=== PATIENT | female | born 1955 | race Caucasian/White ===

== ENCOUNTER → 2019-07-19 14:18 | Outpatient (CLI) | payer MEDICARE, OTHER, SELFPAY ==
--- NOTE | ~2019-07-19 | XR_ITS ---
EXAMINATION: XR heel LT min 2V DATE: 07/19/2019 14:42 INDICATION: Left heel Sosa deformity. Retrocalcaneal bursitis. TECHNIQUE: 2 views of left calcaneus were obtained. COMPARISON: None. FINDINGS: Bone alignment is normal. No fracture. Joint spaces are normal. There are enthesophytes at the posterior and plantar aspects of calcaneal tuberosity. IMPRESSION: 1. Enthesophytes at the posterior and plantar aspects of calcaneal tuberosity. Reviewed, dictated and finalized at location A. N NURSE
== END ==
PROVIDERS: Visit Provider Podiatrist Foot & Ankle Surgery
DX: M77.32 Calcaneal spur, left foot (principal); M70.872 Other soft tissue disorders related to use, overuse and pressure, left ankle and foot
CPT/HCPCS: 73650

== ENCOUNTER 2019-11-01 15:17 | Emergency (ER) | payer MEDICARE, OTHER, SELFPAY ==
[2019-11-01 15:34] VITALS: BP 94/53; PULSE 73; RESP 18; TEMP 36.2; O2SAT 100
--- NOTE | 2019-11-01 15:51 | ED.NEUROSD ---
HPI - Neuro Symptoms/Deficit General Chief Complaint: Neuro Symptoms/Deficit Stated Complaint: herpes zoster Time Seen by Provider: 11/01/19 15:45 Source: patient and RN notes reviewed Mode of arrival: ambulatory Limitations: no limitations History of Present Illness HPI Narrative: Patient presents today with a 2-day history of left-sided eye and facial droop, left-sided blurred vision, drooling and drinking. Denies chest pain, shortness of breath, nausea or vomiting, headache or dizziness. History of diabetes and hypercholesterolemia as well as hypertension. She takes 81 mg aspirin every night. 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 States her symptoms are not continuing to worsen, and actually have improved somewhat since onset. She has not tried any stxo-vjc-pwcroyi medication at home prior to arrival. Related Data Home Medications Medication Instructions Recorded Confirmed alprazolam [Xanax] 1 mg PO HS 11/01/19 11/01/19 aripiprazole [Abilify] 2 mg PO HS 11/01/19 11/01/19 aspirin 81 mg PO HS 11/01/19 11/01/19 atorvastatin [Lipitor] 40 mg PO HS 11/01/19 11/01/19 celecoxib [Celebrex] 200 mg PO DAILY 11/01/19 11/01/19 dulaglutide [Trulicity] 1.5 mg SUBCUT WEEKLY 11/01/19 11/01/19 fluoxetine [Prozac] 40 mg PO DAILY 11/01/19 11/01/19 gabapentin [Neurontin] 600 mg PO BID 11/01/19 11/01/19 insulin glargine [Lantus U-100 18 unit SUBCUT HS 11/01/19 11/01/19 Insulin] levothyroxine 75 mcg PO DAILY 11/01/19 11/01/19 lisinopril [Zestril] 2.5 mg PO DAILY 11/01/19 11/01/19 lithium carbonate [Lithobid] 300 mg PO HS 11/01/19 11/01/19 lysine [L-Lysine] 1,000 mg PO DAILY 11/01/19 11/01/19 metformin [Glucophage XR] 2,000 mg PO DAILY 11/01/19 11/01/19 omeprazole magnesium [Prilosec OTC] 80 mg PO DAILY 11/01/19 11/01/19 ropinirole [Requip] 0.5 mg PO HS 11/01/19 11/01/19 sennosides-docusate sodium 1 tab-cap PO HS 11/01/19 11/01/19 [Senna-S] thiamine HCl (vitamin B1) 250 mg PO QAM 11/01/19 11/01/19 vitamin E 1,000 unit PO DAILY 11/01/19 11/01/19 Allergies Allergy/AdvReac Type Severity Reaction Status Date / Time carbamazepine [From Tegretol] Allergy Other Verified 11/01/19 15:43 Review of Systems Review of Systems: Narrative: CONSTITUTIONAL: Denies body aches, fever, chills, or sweats. EYES: Denies visual changes, redness, or discharge.+ Left eye droop, left blurred vision ENT: Denies rhinorrhea, congestion, sore throat, or otalgia.+ Left-sided facial droop CARDIOVASCULAR: Denies chest pain, palpitations, or edema. RESPIRATORY: Denies cough or dyspnea. GASTROINTESTINAL: Denies abdominal pain, nausea, vomiting, or diarrhea. GENITOURINARY: Denies dysuria or hematuria. SKIN: Denies rash, itching, or wounds. MUSCULOSKELETAL: Denies back pain, joint pain, or myalgia. NEUROLOGIC: Denies headache, numbness, tingling, or weakness. PSYCH: Denies depression or anxiety. [facility] Past Medical History Medical History (Updated 11/01/19 @ 16:02 by Anastasia Subramanian, [facility], ) Diabetes GERD (gastroesophageal reflux disease) History of Duvall's palsy Hypercholesterolemia Hypertension Restless leg syndrome Social History Social History Gender identity (if verbalized by the patient): Female Comments At time of signature, I have reviewed and agree with nursing past medical, surgical, social and family history unless otherwise noted. Please see nursing chart for further information. There is no relevant family history pertinent to the presenting complaint Exam Narrative: Exam Narrative: GENERAL: Well-appearing, well-nourished, and in no acute distress. HEAD: Normocephalic, atraumatic. EYES: EOMI. PERRL. No redness or drainage. Conjunctivae normal. Acuity: Left 20/50, right 20/20. Unable to fully close left eye. ENT: Mucous membranes pink and moist. Nares clear. No rhinorrhea. TMs normal bilaterally. Throat normal. Uvula midl
== END 2019-11-01 16:02 | disposition short-term general hospital (02) ==
PROVIDERS: Emergency Provider Nurse Practitioner
DX: R29.810 Facial weakness (principal); E11.9 Type 2 diabetes mellitus without complications; I10 Essential (primary) hypertension; Z79.4 Long term (current) use of insulin; Z86.69 Personal history of other diseases of the nervous system and sense organs
CPT/HCPCS: 99213; G0463

== ENCOUNTER 2019-11-01 16:14 | Emergency (ER) | payer MEDICARE, OTHER, SELFPAY ==
--- NOTE | ~2019-11-01 | CT_ITS ---
EXAMINATION: CT brain wo con DATE: 11/01/2019 18:05 INDICATION: Facial droop TECHNIQUE: Computed tomography (CT) of the head was performed without intravenous contrast. Sagittal and coronal reconstructions were performed. The mA was adjusted according to patient size. Iterative reconstruction technique was employed. The dose-length product was 605.33 mGy-cm. COMPARISON: None FINDINGS: No acute intracranial hemorrhage, acute infarction or abnormal extra axial fluid collection. Symmetri c prominence of the sulci and subarachnoid spaces overlying the convexities consistent with mild age- appropriate diffuse cerebral volume loss. Ventricles are normal and symmetric. No mass/mass effect. Changes of bilateral intraocular lens replacement. The orbits, paranasal sinuses and mastoid air cell s are normal. Intracranial calcified cerebral atherosclerosis is noted. IMPRESSION: 1. Old age-appropriate volume loss. No acute intracranial process. Reviewed, dictated and finalized at location A.
[2019-11-01 16:18] VITALS: BP 117/59; PULSE 74; RESP 18; TEMP 36.8; O2SAT 100
--- NOTE | 2019-11-01 17:02 | ED.GENADULT ---
HPI - General Adult General Chief complaint: Neuro Symptoms/Deficit Stated complaint: Rule out a stroke Time Seen by Provider: 11/01/19 16:33 Source: patient Mode of arrival: ambulatory Limitations: no limitations History of Present Illness HPI narrative: Patient is a 64-year-old female who presents with 2 days duration of left facial droop went to urgent care was referred to emergency department for further evaluation patient notes droop to the left side of the face with some drying of the left eye patient denies any injury or trauma notes that she had had a similar occurrence in the past diagnosed as Duvall's palsy. Patient on arrival denying any pain denies any other focal neurologic deficits. Related Data Home Medications Medication Instructions Recorded Confirmed alprazolam [Xanax] 1 mg PO HS 11/01/19 11/01/19 aripiprazole [Abilify] 2 mg PO HS 11/01/19 11/01/19 aspirin 81 mg PO HS 11/01/19 11/01/19 atorvastatin [Lipitor] 40 mg PO HS 11/01/19 11/01/19 celecoxib [Celebrex] 200 mg PO DAILY 11/01/19 11/01/19 dulaglutide [Trulicity] 1.5 mg SUBCUT WEEKLY 11/01/19 11/01/19 fluoxetine [Prozac] 40 mg PO DAILY 11/01/19 11/01/19 gabapentin [Neurontin] 600 mg PO BID 11/01/19 11/01/19 insulin glargine [Lantus U-100 18 unit SUBCUT HS 11/01/19 11/01/19 Insulin] levothyroxine 75 mcg PO DAILY 11/01/19 11/01/19 lisinopril [Zestril] 2.5 mg PO DAILY 11/01/19 11/01/19 lithium carbonate [Lithobid] 300 mg PO HS 11/01/19 11/01/19 lysine [L-Lysine] 1,000 mg PO DAILY 11/01/19 11/01/19 metformin [Glucophage XR] 2,000 mg PO DAILY 11/01/19 11/01/19 omeprazole magnesium [Prilosec OTC] 80 mg PO DAILY 11/01/19 11/01/19 ropinirole [Requip] 0.5 mg PO HS 11/01/19 11/01/19 sennosides-docusate sodium 1 tab-cap PO HS 11/01/19 11/01/19 [Senna-S] thiamine HCl (vitamin B1) 250 mg PO QAM 11/01/19 11/01/19 vitamin E 1,000 unit PO DAILY 11/01/19 11/01/19 Allergies Allergy/AdvReac Type Severity Reaction Status Date / Time carbamazepine [From Tegretol] Allergy Other Verified 11/01/19 16:22 Opioids - Morphine Analogues Allergy Itching Verified 11/01/19 16:22 Review of Systems Review of Systems: All systems reviewed & are unremarkable except as noted in HPI and below PMFSH Past Medical History Medical History Diabetes GERD (gastroesophageal reflux disease) History of Duvall's palsy Hypercholesterolemia Hypertension Restless leg syndrome Social History Social History Gender identity (if verbalized by the patient): Female Exam Narrative: Exam Narrative: GENERAL: Well-appearing, well-nourished, and in no acute distress. HEAD: Normocephalic, atraumatic. EYES: PERRLA and EOMI. ENT: Nares clear, no rhinorrhea or epistaxis. Mucous membranes moist. Oropharynx without tonsillar hypertrophy exudate or other lesions. NECK: Supple. No adenopathy or masses. No carotid bruits or JVD CHEST: Clear to auscultation. No respiratory distress. No wheezes rales or rhonchi HEART: Regular rate and rhythm. No murmur heard. Normal peripheral pulses. EXTREMITIES: Normal range of motion. No edema. SKIN: Warm, dry, no rash. NEURO: Alert and oriented x3. Cranial nerves II through XII grossly intact aside from left-sided cranial nerve VII palsy left side of the forehead is not spared. Normal speech and gait. Cerebellar intact. Motor and sensory intact and symmetrical in the extremities PSYCH: Normal mood and affect. Course Course Emergency Course: Patient symptoms most consistent with Duvall's palsy no other focal neurologic deficits on exam felt appropriate for outpatient reevaluation Vital Signs Vital signs: Vital Signs Temperature 98.3 F 11/01/19 16:18 Pulse Rate 74 11/01/19 16:18 Respiratory Rate 18 11/01/19 16:18 Blood Pressure 117/59 L 11/01/19 16:18 Pulse Oximetry 100 11/01/19 16:18 Temperature 98.3 F 11/01/19 16:18 Pulse Ra
[2019-11-01 18:37] VITALS: BP 95/80; PULSE 64; RESP 16; TEMP 36.9; O2SAT 97
== END 2019-11-01 18:38 | disposition home or self-care (01) ==
PROVIDERS: Emergency Provider Emergency Medicine
DX: G51.0 Bell's palsy (principal); Z79.4 Long term (current) use of insulin; E11.9 Type 2 diabetes mellitus without complications; K21.9 Gastro-esophageal reflux disease without esophagitis; E78.00 Pure hypercholesterolemia, unspecified; I10 Essential (primary) hypertension; G25.81 Restless legs syndrome; Z79.82 Long term (current) use of aspirin; Z79.84 Long term (current) use of oral hypoglycemic drugs
CPT/HCPCS: 70450; 99284

== ENCOUNTER → 2020-05-20 13:56 | Outpatient (CLI) | payer MEDICARE, OTHER, SELFPAY ==
--- NOTE | ~2020-05-20 | MM_ITS ---
EXAMINATION: MM screening ivania BI w lelia HISTORY: Screening mammogram TECHNIQUE: Craniocaudal and mediolateral oblique 3-D tomosynthesis images were obtained and synthetic 2-D images were generated. CAD analysis was submitted and interpreted. COMPARISON: 02/18/2019, 11/24/2017, 11/23/2016 bilateral digital screening mammogram examinations BREAST PARENCHYMAL COMPOSITION: There are scattered areas of fibroglandular density. FINDINGS: There is an approximately 2.9 mm irregular new hyperdensity in the anterior mid inner media l right breast (craniocaudal Tomosynthesis image 29/50; MLO Tomosynthesis image 13/55). Diagnostic r ight mammogram and ultrasound examination are recommended. Otherwise there is no evidence of suspicious mass, calcification, or architectural distortion to sug gest malignancy in either breast. There has been no other suspicious interval change. IMPRESSION: 1. New approximately 3 mm hyperdense irregular mass of anterior inner mid medial right breast 2. Recommend diagnostic right mammogram and right breast ultrasound. BI-RADS Category 0: Incomplete: Needs additional imaging evaluation. Reviewed, dictated and finalized at location A. [employer]PERATOR IMPRESSION: 1. New approximately 3 mm hyperdense irregular mass of anterior inner mid media l right breast 2. Recommend diagnostic right mammogram and right breast ultrasound. BI-RADS Category 0: Incomplete: Needs additional imaging evaluation.
== END ==
PROVIDERS: PCP Family Medicine; Visit Provider Family Medicine
DX: Z12.31 Encounter for screening mammogram for malignant neoplasm of breast (principal); R92.8 Other abnormal and inconclusive findings on diagnostic imaging of breast
CPT/HCPCS: 77063; 77067

== ENCOUNTER → 2021-09-06 15:23 | Outpatient (CLI) | payer MEDICARE, OTHER, SELFPAY ==
--- NOTE | ~2021-09-06 | XR_ITS ---
EXAM: XR foot RT standing 2V, XR foot LT standing 2V HISTORY: M19.90 - Unspecified osteoarthritis, unspecified site COMPARISON: None available FINDINGS: Decreased mineralization. Moderate right and mild left hallux valgus. Mild bilateral first MTP degenerative change. Remaining joint spaces are maintained. Os trigonum on the right. Minimal de generative changes in the tibiotalar joints bilaterally. Bilateral plantar and Achilles enthesopathy. IMPRESSION: Osteopenia. Bilateral hallux valgus and mild first MTP osteoarthritis. Reviewed, dictated and finalized at location K. IMPRESSION: Osteopenia. Bilateral hallux valgus and mild first MTP osteoarthritis.
--- NOTE | ~2021-09-06 | XR_ITS ---
EXAMINATION: XR hand BI arthritis min 3V EXAM DATE: 09/06/2021 16:34 INDICATION: M19.90 - Unspecified osteoarthritis, unspecified site. TECHNIQUE: Right hand frontal, lateral and oblique projections obtained and reviewed. Left hand fron subhash, lateral and oblique projections obtained and reviewed. Catchers projection of both hands. There is no prior study for comparison. FINDINGS: Right hand: There is moderate to severe 1st carpometacarpal joint primary osteoarthritis. Otherwise mild polyarticular primary osteoarthritis. There are no bony erosions identified. There are no acute fractures identified. No radiopaque foreign bodies identified. Maintained scapholunate joint space. Left hand: There is severe 1st carpometacarpal joint primary osteoarthritis. Otherwise mild polyarti cular primary osteoarthritis. There are no bony erosions identified. There are no acute fractures rebekah ntified. No radiopaque foreign bodies identified. Scapholunate joint space maintained. IMPRESSION: 1. Advanced left greater than right 1st CMC osteoarthritis. 2. No erosions. Reviewed, dictated and finalized at location B.
--- NOTE | ~2021-09-06 | XR_ITS ---
EXAMINATION: XR sacroiliac joints min 3V EXAM DATE: 09/06/2021 16:34 INDICATION: M19.90 - Unspecified osteoarthritis, unspecified site TECHNIQUE: Sacroiliac frontal and bilateral oblique projections. There are no prior studies for albert talbot. FINDINGS: Posterior and interbody fusion L5-S1, intact hardware. There is mild symmetric bilateral hi p and sacroiliac primary osteoarthritis. There are no bony erosions identified. Sacrum, sacroiliac joints, sacral arcuate lines are intact. Calcifications in the pelvis are believed to be phleboliths . IMPRESSION: Mild hip and sacroiliac osteoarthritis. Reviewed, dictated and finalized at location B.
== END ==
PROVIDERS: PCP Family Medicine; Visit Provider Internal Medicine
DX: M19.041 Primary osteoarthritis, right hand (principal); M19.042 Primary osteoarthritis, left hand; M53.3 Sacrococcygeal disorders, not elsewhere classified; M85.871 Other specified disorders of bone density and structure, right ankle and foot; M20.11 Hallux valgus (acquired), right foot; M20.12 Hallux valgus (acquired), left foot; M19.071 Primary osteoarthritis, right ankle and foot; M19.072 Primary osteoarthritis, left ankle and foot; M85.872 Other specified disorders of bone density and structure, left ankle and foot
CPT/HCPCS: 72202; 73130; 73620